=== PATIENT | male | born 1970 | race Caucasian/White ===

== ENCOUNTER → 2017-01-08 | Outpatient (CLI) | payer OTHER ==
[2017-01-08 16:27] LABS: Basophils % (A) 0 %; CH 28.9; CHCM 33.5; Eosinophils # (A) 0.1 k/uL (0-0.7); Eosinophils % (A) 2 %; HCT 46.3 % (39.0-53.0); HDW 2.75; HGB 15.3 gm/dL (13.0-17.5); Luc # (Auto) 0.12; Luc % (Auto) 2; Lymphocytes # (A) 1.3 k/uL (1.0-4.8); Lymphocytes % (A) 20 %; MCH 28.7 pg (25.0-35.0); MCHC 33.1 g/dL (31.0-37.0); MCV 86.7 fL (80.0-100.0); Mean Platelet Volume 6.6; Monocytes # (A) 0.4 k/uL (0-1.0); Monocytes % (A) 6 %; Neutrophils # (A) 4.7 k/uL (1.3-7.7); Neutrophils % (A) 70 %; RBC 5.34 m/uL (4.30-5.90); RDW 14.2 % (11.5-15.5); WBC 6.7 k/uL (3.8-10.6); WBC (Perox) 6.47
[2017-01-08 17:16] LABS: Potassium 4.6 mmol/L (3.5-5.1)
== END | disposition home or self-care (01) ==
LOC: LABWHC1 16:02
PROVIDERS: ATTEND Orthopaedic Surgery
DX: Z01.812 Encounter for preprocedural laboratory examination (principal); M23.91 Unspecified internal derangement of right knee
CPT/HCPCS: 36415; 80051; 85025

== ENCOUNTER 2017-01-11 09:32 | Day surgery (SDC) | payer OTHER ==
[2017-01-09 11:03] VITALS: BMI 28.8
--- NOTE | 2017-01-10 09:31 | HP ---
HISTORY AND PHYSICAL CHIEF COMPLAINT: Right knee pain. 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 He stepped out of a golf cart and twisted his knee. He notes significant pain, swelling, and stiffness ever since. He notes his knee locks and ashley. He had a previous knee arthroscopy in 2012. PAST MEDICAL HISTORY: Negative. PAST SURGICAL HISTORY: Significant for previous right knee arthroscopy, gallbladder removal and ankle surgery. CURRENT ALLERGIES: None. ALLERGIES: He denies drug allergies. FAMILY HISTORY: Significant for heart disease and cancer. SOCIAL HISTORY: Negative for current tobacco or alcohol use. REVIEW OF SYSTEMS: Sixteen point review of systems otherwise reviewed and is noncontributory. PHYSICAL EXAMINATION: On examination, the patient is approximately 6 feet 2 inches, 220 pounds of endomorphic habitus. HEENT exam is nonfocal. Neck is supple. He has painless passive motion of the right hip. Active motion right knee -4 to 130 degrees of flexion. He is tender about the medial joint line. He has trace effusion. Collaterals are stable, Anali's 2+ with a soft endpoint, Rashmi's elicits medial pain. His distal neurovascular appears intact in the right lower extremity. MRI report from 12/18/2016 shows a chronic ACL rupture along with a posterior medial meniscal tear. IMPRESSION: 1. Right knee internal derangement with symptomatic medial meniscal tear. 2. Chronic right knee ACL deficiency. RECOMMENDATIONS: I talked to the patient at length regarding his treatment options. At this point, he is having significant pain and mechanical symptoms that limit his normal function and activities. After thorough discussion, he opts to proceed with surgery. We will plan to proceed with arthroscopic evaluation with possible partial medial meniscectomy. Risks and benefits were discussed at length in layman's terms. We will likely perform that as an outpatient procedure. MMODL / IJN: [id number] /
[~2017-01-11 09:32] MED LIST: DEXAMETHASONE SOD PHOSPHATE 10 MG/ML 1 ML VIAL IV ONE; LACTATED RINGERS 1,000 ML IV SCH; LIDOCAINE 1% 20 ML VIAL (10MG/ML) FOR IV START INTRADERMA PRN; ONDANSETRON 4 MG/2 ML VIAL IVP ONE; SCOPOLAMINE 1.5MG/72HR PATCH TRANSDERM ONE; ceFAZolin IN SWFI 2 GM/20 ML SYRINGE IVP ONE
[2017-01-11] MEDS ORDERED: SUCCINYLCHOLINE CHLORIDE 100 MG/5 ML SYR IV ONE (11:13)
[2017-01-11] MEDS ORDERED: PROPOFOL 10 MG/ML 20 ML VIAL IV ONE (11:13)
[2017-01-11] MEDS ORDERED: fentaNYL (PF) 50 MCG/ML 2 ML AMP ONE (11:13)
[2017-01-11] MEDS ORDERED: LIDOCAINE 1% INJ 10MG/ML (20 ML MDV) ONE (11:13)
[2017-01-11] MEDS ORDERED: MIDAZOLAM 2 MG/2 ML VIAL ONE (11:13)
[2017-01-11] MEDS ORDERED: SODIUM CHLORIDE 0.9% 0 ML with ceFAZolin 2 GM IV ONE ×2 (11:20)
--- NOTE | 2017-01-11 12:15 | P.OP ---
Date of Procedure: 01/11/17 Preoperative Diagnosis: Right knee internal derangement Postoperative Diagnosis: Right knee posterior horn medial meniscal tear/posterior horn lateral meniscal tear/reactive synovitis of the medial and patellofemoral compartments Procedure(s) Performed: Right knee arthroscopic partial medial meniscectomy/partial lateral meniscectomy /partial synovectomy of the medial and patellofemoral compartments Anesthesia: MARYLUA Surgeon: Jitendra Manjarrez Estimated Blood Loss (ml): 10 Pathology: none sent Condition: stable Disposition: PACU Indications for Procedure: The patient's a 46-year-old male who presents with progressive right knee pain and mechanical symptoms since a recent twisting injury. He has a history of a chronic ACL rupture. A discussion of the risks and benefits of continued conservative measures versus operative intervention was made with patient. He opted to proceed with surgery. Operative risks to include infection, neurovascular injury, development of blood clots, possible incomplete resolution of symptoms, possible worsening symptoms and need for subsequent procedures was discussed. Informed consent was obtained. Operative Findings: As below Description of Procedure: The patient was brought to the operating room, and after induction of general anesthesia examined the right knee. Collaterals were stable, Anali was 2+ with a soft endpoint, pivot shift was positive, and posterior drawer was negative. The right lower extremity was prepped and draped in normal fashion. A superior lateral portal was made through a 3 mm skin incision superior and lateral to the patella. This was used for outflow. A lateral portal was made through a 5 mm vertical skin incision lateral to the patellar tendon above the joint. Diagnostic arthroscopy was performed. A medial portal was made through a similar incision medial to the patella tendon above the joint line. On inspection the medial compartment, a longitudinal tear involving the posterior horn the medial meniscus in the white-junction was noted. This was not amenable to repair. This was debrided back to stable base with straight baskets and a motorized shaver. The edges were contoured. Grade 2-3 chondral changes were noted diffusely involving medial compartment. Reactive synovitis involving the anterior medial compartment was debrided with a motorized shaver. On inspection the notch, the chronic ACL rupture was noted off the lateral femoral wall. This was scarred to the posterior cruciate ligament. On inspection of the lateral compartment, a bilevel horizontal tear was noted involving the posterior horn of the lateral meniscus. This was debrided back to stable base with straight baskets and a motorized shaver. The remaining lateral meniscus was stable and intact. On inspection the patellofemoral articulation, there was reactive synovitis debrided with motorized shaver. Grade 2 chondral changes were noted diffusely. No loose cartilage fragments were noted. The gutters were clear debris. The knee was then thoroughly irrigated. The portals were closed with Steri-Strips. A sterile dressing was applied in addition to a compression stocking. The patient was awoken from general anesthesia and transferred to recovery room in good condition. Blood loss was estimated at 10 mL. No complications were incurred.
[2017-01-11 12:29] VITALS: TEMP 97.2
[2017-01-11] MEDS: HYDROmorphone 0.5 MG/0.5 ML SYRINGE IVP PRN ×4 (12:35→12:51)
[2017-01-11 12:44] VITALS: RESP 16
[2017-01-11] MEDS ORDERED: LACTATED RINGERS 1,000 ML IV ONE (12:45)
[2017-01-11] MEDS ORDERED: oxyCODONE-APAP 7.5-325MG 1 EACH TAB PO ONE (13:45)
[2017-01-11 14:19] VITALS: BP 128/76; PULSE 87
== END 2017-01-11 14:50 | disposition home or self-care (01) ==
LOC: OR 09:32
PROVIDERS: ATTEND Orthopaedic Surgery
DX: S83.241A Other tear of medial meniscus, current injury, right knee, initial encounter (principal); S83.281A Other tear of lateral meniscus, current injury, right knee, initial encounter; X50.1XXA Overexertion from prolonged static or awkward postures, initial encounter; M65.861 Other synovitis and tenosynovitis, right lower leg; F17.200 Nicotine dependence, unspecified, uncomplicated
CPT/HCPCS: 29880; J2250; J1100; J0690; J2405; J2001; J3010; J0330; J2704; J1170

== ENCOUNTER → 2018-04-04 | Outpatient (CLI) | payer OTHER ==
[2018-04-04 18:50] LABS: ALT 59 U/L (10-49); AST 42 U/L (14-35)
== END | disposition home or self-care (01) ==
LOC: LABWHC1 11:51
PROVIDERS: ATTEND Podiatrist
DX: K75.9 Inflammatory liver disease, unspecified (principal)
CPT/HCPCS: 36415; 84450; 84460

== ENCOUNTER → 2023-04-04 | Outpatient (CLI) | payer BC ==
--- NOTE | 2023-04-04 11:27 | P.SLEEP ---
History of Present Illness DATE: 04/04/2023 CONSULTATION/NEW PATIENT EVALUATION HISTORY OF PRESENT ILLNESS/SLEEP-WAKE EVALUATION: 53-year-old gentleman had been evaluated in the sleep center for possible obstructive sleep apnea hypopnea syndrome. SLEEP SCHEDULE: Usually sleep schedule from 10:30 PM to 5:30 AM on weekdays and from midnight until 8 AM on weekend. FALLING ASLEEP: No problems with falling asleep. DURING SLEEP: Patient has loud snoring and multiple awakenings from sleep up to 5 times with one episode of nocturia. Positive history of grinding teeth, dry mouth, restless leg symptoms heartburn. Positive history of episodes of sleep talking. No history of hypnogogical hallucinations, sleep paralysis, or cataplexy. DURING THE DAY/WAKE STATE: []. [place] sleepiness scale is 1. Patient usually doesn't take any naps. PAST MEDICAL HISTORY: Knee problems, hiatal hernia. PAST SURGICAL HISTORY: Knee surgery, right leg surgery for MRSA. MEDICATIONS: None at the present time. SOCIAL HISTORY: Positive for using marijuana, alcohol consumption occasional. FAMILY HISTORY: Cancer, hyperlipidemia, restless leg symptoms. REVIEW OF SYSTEMS: Loud snoring, multiple awakenings from sleep. No fevers. No double vision. No recent chest pain. No shortness of breath. No abdominal pain. No bleeding episodes. No blood in urine. No seizure episodes. PHYSICAL EXAMINATION: GENERAL: A pleasant patient without any distress. VITAL SIGNS: BP 128/94 , HR 66 , RR 16 , weight 242.2 pounds, height 6 foot 0 inches, body mass index 32.8 . HEENT: PERRLA, EOMI. Evaluation of oropharynx showed tongue protrudes midline, low position of soft palate Mallampati 34. NECK: Supple. No JVD. Thyroid is not palpable. 17 inches in circumference. LUNGS: Clear to percussion and to auscultation. Good air exchange. No wheezing or rhonchi. HEART: S1, S2 regular. No murmurs, gallops or rubs. ABDOMEN: Soft and nontender. Bowel sounds are present. No organomegaly appreciated. EXTREMITIES: No clubbing or cyanosis. EMPLOYEE RELATIONS SPECIALIST: Awake, alert, and oriented x3. Cranial nerves 2 to 7 intact. There is no fasciculation or atrophy noted. No focal deficits observed. ASSESSMENT: 1. Loud snoring, multiple awakenings from sleep, extremely low position of soft palate Mallampati 34, wide neck 17 inches in circumference. Obstructive sleep apnea hypopnea syndrome. 2. Mild obesity, BMI 32.8. 3. History of restless leg symptoms. 4. Status post right leg surgery for MRSA. 5 status post knee surgery. 6 . History of hiatal hernia. PLAN: 1. Polysomnography for evaluation of patient's breathing during sleep. 2. Following plan after reading sleep study. 3. Preferable position during sleep on the side. 4. No driving if patient feels any sleepiness. Patient is aware of civil and criminal liability for unsafe driving. 5. Sleep hygiene with regular sleep time for at least 7.5-8 hours. 6. Watching and losing weight. Thank you very much for referring this patient for consultation. Sincerely, Russ Araujo MD, PhD, FAASM. Diplomat of [place] [employer], Sleep Medicine Board by [place] [employer] [place] [employer] Buffer Operator of [facility] [place] Medications and Allergies Home Medications Medication Instructions Recorded Confirmed Type oxyCODONE HCL/ACETAMINOPHEN 1 tab PO Q6HR PRN #20 tab 01/11/17 Rx [Percocet 7.5-325 mg] Allergies Allergy/AdvReac Type Severity Reaction Status Date / Time No Known Allergies Allergy Verified 01/11/17 09:52 Sleep Note - Sleep Note Sleep Note: Temperature: Pulse Rate: Respiratory Rate: Blood Pressure: SpO2: Height: Weight: BMI: Neck Circumference:
== END ==
LOC: 3 N SLEEP 10:34
PROVIDERS: ATTEND Internal Medicine
DX: G47.33 Obstructive sleep apnea (adult) (pediatric) (principal); E66.9 Obesity, unspecified; G25.81 Restless legs syndrome; F12.90 Cannabis use, unspecified, uncomplicated; Z98.890 Other specified postprocedural states; Z90.49 Acquired absence of other specified parts of digestive tract; Z86.14 Personal history of Methicillin resistant Staphylococcus aureus infection; Z68.32 Body mass index [BMI] 32.0-32.9, adult
CPT/HCPCS: 99202

== ENCOUNTER → 2023-05-02 | Outpatient (CLI) | payer BC ==
--- NOTE | 2023-05-08 15:12 | P.PCN ---
Description of Procedure: CLINICAL: A home sleep apnea test has been done for confirmation of possible obstructive sleep apnea-hypopnea syndrome. DESCRIPTION OF PROCEDURE: RESULTS: Recording time was 8 hours 3 minutes. Evaluation time was 7 hours 51 minutes. Evaluation time is sufficient for making conclusion about results of the test. Raw data of sleep recording has been reviewed and is adequate. Respiratory channel showed 46 apneas and 198 hypopneas. Apnea-hypopnea index was 31.0 per hour. Pulse rate in the range between minimum 50, maximum 89, average 60 by computer calculation. Lowest desaturation was 82%. IMPRESSION: 1. Severe Obstructive Sleep Apnea Hypopnea Syndrome. Please see other impressions from consultation. PLAN: 1. The patient should have PAP titration for correction of respiratory abnormallities during sleep. 2. Sleep hygiene with regular time in bed for at least 8 hours. 3. Watching and losing weight. 4. No driving if feeling any sleepiness. Thank you very much for allowing me to participate in the management of your patient. Sincerely, Russ Araujo MD, PhD, FAASM Diplomat of [place] [employer] Sleep Medicine Board of [place] [employer] Stitch Burnisher of [facility] [place]
== END ==
LOC: 3 N SLEEP 16:59
PROVIDERS: ATTEND Internal Medicine
DX: G47.33 Obstructive sleep apnea (adult) (pediatric) (principal)

== ENCOUNTER 2023-05-21 19:50 | Outpatient (CLI) | payer BC ==
--- NOTE | 2023-05-22 11:52 | P.PCN ---
Description of Procedure: CLINICAL: Titration with positive air pressure has been done for correction of respiratory abnormalities during sleep. DESCRIPTION OF PROCEDURE: The standard montage for clinical polysomnography included the electroencephalogram, the electrocardiogram, the mentalis surface electromyography and Lead II cardiography. The respiratory battery consisted of measurements of nasal /buccal air flow, pressure transducer measurements from the nose, thoracic and /or abdominal effort and intercostal surface electromyography. Video monitoring has been done to check for any parasomnia events. Nocturnal oxyhemoglobin saturations were obtained by finger oximetry. Step-villarreal titration with positive airway pressure was utilized to control respiratory events. Raw data of sleep recording has been reviewed and is adequate. RESULTS: Sleep efficiency was decreased to 78.7%. Latency to sleep onset was prolonged to 37.5 minutes.]. Sleep architecture showed stage N1 was extremely short 0.7%, Delta sleep was normal 13.0%, REM sleep was significantly increased to 40.9%. Heart rate was minimum 52 BPM, maximum 62 BPM, average 55 BPM. EMG showed 0 periodic limb movements per hour. PAP titration have been done with CPAP up to the pressure 12 cm H2O. The best results were at the pressure 12 cm H2O. Apnea hypopnea index reduced to 2.3. IMPRESSION: 1. Severe obstructive sleep apnea hypopnea syndrome on controle with PAP treatment. 2. No significant periodic limb movements have been documented. Please see other impressions from consultation. PLAN: 1. The patient will have treatment with positive air pressure equipment with the level of pressure AutoPAP 8-14 cm H2O and should use it every night for the whole night. 2. Watching and losing weight. 3. Sleep hygiene with regular time in bed for at least 8 hours. 4. No driving if feeling any sleepiness. 5. I will see the patient for follow up visit to explain the results of the test, recommendations, check compliance with treatment and make any necessary adjustment related to mask fitting, pressure and humidification. Thank you very much for allowing me to participate in the management of your patient. Sincerely, Russ Araujo MD, PhD, FAASM Diplomat of [place] [employer] Sleep Medicine Board of [place] [employer] Manuscript Editor of [facility] [place]
== END 2023-05-22 06:00 | disposition home or self-care (01) ==
LOC: 3 N SLEEP 19:50
PROVIDERS: ATTEND Internal Medicine
DX: G47.33 Obstructive sleep apnea (adult) (pediatric) (principal); G47.61 Periodic limb movement disorder
CPT/HCPCS: 95811

== ENCOUNTER → 2023-08-21 | Outpatient (CLI) | payer BC ==
[2023-08-21 16:28] VITALS: BP 120/81; PULSE 60; RESP 16; TEMP 97.6
--- NOTE | 2023-08-21 17:37 | P.PROGSL ---
Subjective DATE: 08/21/2023 FOLLOW UP VISIT. Patient with obstructive sleep apnea hypopnea syndrome return to sleep center for follow-up visit. Recently patient had sleep study which documented obstructive sleep apnea hypopnea syndrome. Patient was initiated on PAP therapy and today is first visit after treatment was started. Patient was able to use PAP equipment every night for the whole night. The patient does not have significant problems with the mask, PAP pressure and humidification. [place] sleepiness scale is 1, which is normal. I checked information from PAP unit. PAP unit pressure 8-14, average 10.8 cm H2O. Usage is 97% and 80% for more then 4 hours, average 5.5 hours per night. Leak is 14.9 l/m, which is in acceptable range. Apnea Hypopnea Index is 2.0, which is normal. MEDICATIONS: Please see below. During physical exam: GENERAL: A pleasant patient without any distress. VITAL SIGNS: Please see below. HEENT: PERRLA, EOMI.low position of soft palate, Mallapati 34. NECK: Supple. No JVD. LUNGS: Clear to percussion and to auscultation. Good air exchange. No wheezing or rhonchi. HEART: S1, S2 regular. ABDOMEN: Soft and nontender.[] EXTREMITIES: No clubbing or cyanosis. CRAB BUTCHER: Awake, alert, and oriented x3. No focal deficit. Impressions: 1. Obstructive sleep apnea-hypopnea syndrome in severe range. Patient dem onstrated great compliance with treatment, benefiting from treatment. 2. Mild obesity. 3. Status post knee surgery. 4. Status post right leg surgery for MRSA. 5. Status post hiatal hernia treatment. 6. History of restless leg symptoms. Plan: 1. Continue using PAP equipment every night for the whole night. 2. To change air filter at least 1-2 times per month. 3. PAP unit should stay lower then position of the head. 4. Advised patient to remove all remaining water from humidifier canister daily and make it dry after each usage. Refill canister with fresh distilled water before each usage. 5. Sleep hygiene with regular time in bed for at least 8 hours. 6. Precautions related to driving. No driving if feel any sleepiness. 7. I will maintain prescription for PAP supplies including mask, tube, filters. 8. Follow up visit in 6 months or earlier if patient has any problems. 9. Watching and losing weight. Thank you very much for allowing me to participate in the management of your patient. Russ Araujo MD, PhD, FAASM. Diplomat of [place] [employer], Sleep Medicine Board by [place] [employer] Cell Biologist of [facility] [place] Objective - Vital Signs Vital Signs: Vital Signs Temp 97.6 F 08/21/23 16:27 Pulse 60 08/21/23 16:27 Resp 16 08/21/23 16:27 BP 120/81 08/21/23 16:27 Pulse Ox 98 08/21/23 16:27 FiO2 Home Medications: Home Medications Medication Instructions Recorded Confirmed Type oxyCODONE HCL/ACETAMINOPHEN 1 tab PO Q6HR PRN #20 tab 01/11/17 Rx [Percocet 7.5-325 mg]
== END ==
LOC: 3 N SLEEP 16:02
PROVIDERS: ATTEND Internal Medicine
DX: G47.33 Obstructive sleep apnea (adult) (pediatric) (principal); E66.9 Obesity, unspecified; Z87.39 Personal history of other diseases of the musculoskeletal system and connective tissue; Z99.89 Dependence on other enabling machines and devices; Z98.890 Other specified postprocedural states; Z86.14 Personal history of Methicillin resistant Staphylococcus aureus infection
CPT/HCPCS: 99212

== ENCOUNTER → 2024-04-22 | Outpatient (CLI) | payer BC ==
[2024-04-22 16:55] VITALS: BP 135/88; PULSE 54; RESP 16; TEMP 97.7
--- NOTE | 2024-04-22 17:13 | P.PROGSL ---
Subjective DATE: 04/22/2024 FOLLOW UP VISIT. Patient with obstructive sleep apnea hypopnea syndrome return to sleep center for follow-up visit. Information from previous visit have been reviewed. Patient is using PAP equipment every night for the whole night, getting PAP supplies in time. The patient does not have significant problems with the mask, PAP unit and humidification. [place] sleepiness scale is 2, which is perfect. I checked information from PAP unit. PAP unit pressure 8-14, average 11 cm H2O. Usage is 80% for more then 4 hours, average 6 hours per night. Leak is 29 l/m, which is in acceptable range. Apnea Hypopnea Index is 1.9, which is normal. MEDICATIONS have been reviewed, please see below. During physical exam: GENERAL: A pleasant patient without any distress. VITAL SIGNS: Please see below, weight is 243 lbs. HEENT: PERRLA, EOMI.low position of soft palate, Mallapati 34. NECK: Supple. No JVD. LUNGS: Clear to percussion and to auscultation. Good air exchange. No wheezing or rhonchi. HEART: S1, S2 regular. ABDOMEN: Soft and nontender.[] EXTREMITIES: No clubbing or cyanosis. ELEPHANT TAMER: Awake, alert, and oriented x3. No focal deficit. Impressions: 1. Obstructive sleep apnea-hypopnea syndrome. Patient demonstrated great compliance with treatment, benefiting from treatment. 2. Mild obesity, BMI 32.9. 3. Status post knee surgery. 4. S/p hiatal hernia repair. 5. Status post right leg surgery for MRSA. 6. History of restless leg symptoms. Plan: 1. Continue using PAP equipment every night for the whole night. 2. Sleep hygiene with regular time in bed for at least 7.5-8 hours 3. PAP unit should stay lower then position of the head. 4. Advised patient to remove all remaining water from humidifier canister daily and make it dry after each usage. Refill canister with fresh distilled water before each usage. 5. Watching weight. 6. Precautions related to driving. No driving if feel any sleepiness. 7. I will maintain prescription for PAP supplies including mask, tube, filters. 8. Follow up visit in 8 months or earlier if patient has any problems. Thank you very much for allowing me to participate in the management of your patient. Russ Araujo MD, PhD, FAASM. Diplomat of [place] [employer], Sleep Medicine Board by [place] [employer] Tenoner Operator of [facility] [place] Objective - Vital Signs Vital Signs: Vital Signs Temp 97.7 F 04/22/24 16:51 Pulse 54 L 04/22/24 16:51 Resp 16 04/22/24 16:51 BP 135/88 04/22/24 16:51 Pulse Ox 97 04/22/24 16:51 FiO2 Home Medications: Home Medications Medication Instructions Recorded Confirmed Type oxyCODONE HCL/ACETAMINOPHEN 1 tab PO Q6HR PRN #20 tab 01/11/17 Rx [Percocet 7.5-325 mg]
== END ==
LOC: 3 N SLEEP 16:41
PROVIDERS: ATTEND Internal Medicine
DX: G47.33 Obstructive sleep apnea (adult) (pediatric) (principal); E66.9 Obesity, unspecified; Z68.32 Body mass index [BMI] 32.0-32.9, adult; Z87.39 Personal history of other diseases of the musculoskeletal system and connective tissue; Z98.890 Other specified postprocedural states
CPT/HCPCS: 99212